=== PATIENT | male | born 1995 | race Caucasian/White ===

== ENCOUNTER 2019-05-04 13:13 | Day surgery (SDC) | payer OTHER ==
[2019-05-04] MEDS ORDERED: DESFLURANE 15 MIN (14:14)
[2019-05-04] MEDS ORDERED: ROPIVACAINE 0.5 % 30 ML VIAL (14:14)
[2019-05-04] MEDS ORDERED: FENTAnyl 50 MCG/ML VIAL ×2 (14:14→15:53)
[2019-05-04] MEDS ORDERED: MIDAZOLAM 1 MG/ML 2 ML INJ (14:14)
[2019-05-04] MEDS ORDERED: LIDOCAINE 2% (SDV) 5 ML INJ (14:14)
[2019-05-04] MEDS ORDERED: HYDROmorphONE 1 MG/5 ML IV SYRINGE IV ×2 (14:30)
[2019-05-04] MEDS ORDERED: FENTAnyl 50 MCG/ML VIAL IV ×3 (14:30)
[2019-05-04] MEDS ORDERED: MEPERIDINE 25 MG INJ IV (14:30)
[2019-05-04] MEDS ORDERED: DIPHENHYDRAMINE 50 MG INJ IV (14:30)
[2019-05-04] MEDS ORDERED: METOCLOPRAMIDE 10 MG INJ IV ×2 (14:30→19:30)
[2019-05-04] MEDS ORDERED: CEFAZOLIN 1 GM INJ (14:44)
[2019-05-04] MEDS ORDERED: SUCCINYLCHOLINE CHLORIDE 100 MG/5 ML SYG IV (14:44)
[2019-05-04] MEDS ORDERED: ROCURONIUM 50 MG INJ (14:44)
[2019-05-04] MEDS ORDERED: PROPOFOL 20 ML (14:44)
[2019-05-04] MEDS ORDERED: SUGAMMADEX SODIUM 200 MG/2 ML VIAL IV (14:44)
[2019-05-04] MEDS ORDERED: NEOMYC/POLYMYX/BACIT 3.5GM OPH OINT (15:32)
[2019-05-04] MEDS ORDERED: morphine 2 MG INJ IV (17:30)
[2019-05-04] MEDS: ONDANSETRON 4 MG INJ IV (17:49)
[2019-05-04] MEDS: HYDROmorphONE 1 MG/5 ML IV SYRINGE IV ×2 (17:49→18:30)
[2019-05-04] MEDS: KETOROLAC 30 MG INJ IV (18:00)
[2019-05-04] MEDS: FENTAnyl 50 MCG/ML VIAL IV (19:13)
== END 2019-05-04 19:46 | disposition home or self-care (01) ==
LOC: SDS 13:13
DX: S83.512A Sprain of anterior cruciate ligament of left knee, initial encounter (principal); X58.XXXA Exposure to other specified factors, initial encounter
CPT/HCPCS: 29888; 82306